=== PATIENT | female | born 1995 | race Caucasian/White ===

== ENCOUNTER 2021-10-22 13:52 | Emergency (ER) | payer MEDICAID ==
[~2021-10-22] VITALS: Ht 172.7 cm; Wt 63.5 kg
[2021-10-22 14:18] VITALS: BP 121/67
[2021-10-22] MEDS ORDERED: IBUP-1957 PO (15:12)
--- NOTE | 2021-10-22 16:03 | NUR ---
Patient discharged to home in stable condition. Written and verbal after care instructions given. Patient verbalizes understanding of instruction.
== END 2021-10-22 16:04 | disposition home or self-care (01) ==
LOC: ER 14:03
DX: K08.89 Other specified disorders of teeth and supporting structures (principal); Z88.0 Allergy status to penicillin

== ENCOUNTER 2023-07-06 22:11 | Emergency (ER) | payer MEDICAID ==
[~2023-07-06] VITALS: Ht 172.7 cm; Wt 70.3 kg
[~2023-07-06 22:11] MED LIST: IBUP-1957 PO
[2023-07-07] MEDS ORDERED: CLIN300C3 PO (00:13)
[2023-07-07] MEDS ORDERED: KETO10TA2 PO (00:13)
[2023-07-07] MEDS ORDERED: HYDR-4209 PO (00:13)
[2023-07-07] MEDS ORDERED: HYDROCODONE/APAP 5/325MG TABLET ONE (00:19)
[2023-07-07] MEDS ORDERED: HYDROCODONE/APAP 5/325MG TABLET PO ONE (00:30)
[2023-07-07 01:08] VITALS: BP 121/73; TEMP 98.2; O2SAT 99
[2023-07-07] MEDS ORDERED: HYDR-3980 PO (11:43)
== END 2023-07-07 01:08 | disposition home or self-care (01) ==
LOC: ER 22:12
DX: K08.89 Other specified disorders of teeth and supporting structures (principal); Z79.899 Other long term (current) drug therapy; Z60.2 Problems related to living alone; Z88.0 Allergy status to penicillin

== ENCOUNTER 2023-08-17 01:13 | Emergency (ER) | payer MEDICAID ==
[~2023-08-17] VITALS: Ht 172.7 cm; Wt 63.5 kg
[~2023-08-17 01:13] MED LIST changes: +CLIN300C3 PO; +HYDR-3980 PO; +KETO10TA2 PO
[2023-08-17 01:32] VITALS: BP 129/83; TEMP 98.1; O2SAT 99
[2023-08-17] MEDS ORDERED: CLIN150C16 PO (01:38)
[2023-08-17] MEDS ORDERED: KETOROLAC TROMETHAMINE INJ 60 MG/2 ML VIAL IM ONE ×2 (01:44→02:00)
== END 2023-08-17 02:09 | disposition home or self-care (01) ==
LOC: ER 01:19
DX: K08.89 Other specified disorders of teeth and supporting structures (principal); Z88.0 Allergy status to penicillin; Z60.2 Problems related to living alone
CPT/HCPCS: J1885